=== PATIENT | female | born 1930 | race Caucasian/White ===

== ENCOUNTER → 2017-07-28 | Outpatient (CLI) | payer OTHER ==
[~2017-07-28] MED LIST: IOPAMIDOL (ISOVUE-300) 100 ML BTL ONE
== END ==
LOC: CIMAGING 13:05
PROVIDERS: ATTEND Registered Nurse General Practice
DX: R31.0 Gross hematuria (principal); K76.0 Fatty (change of) liver, not elsewhere classified; K57.30 Diverticulosis of large intestine without perforation or abscess without bleeding; Z87.891 Personal history of nicotine dependence
CPT/HCPCS: 74178; 76770; Q9967

== ENCOUNTER → 2018-07-01 | Outpatient (CLI) | payer OTHER | LOC: FIMAGING 14:02 | PROVIDERS: ATTEND Family Medicine | DX: M79.605 Pain in left leg (principal) ==

== ENCOUNTER → 2018-07-12 | Outpatient (CLI) | payer OTHER | LOC: BHFA 11:00 | PROVIDERS: ATTEND Internal Medicine | DX: Z01.810 Encounter for preprocedural cardiovascular examination (principal) ==

== ENCOUNTER → 2018-07-21 | Outpatient (CLI) | payer OTHER | LOC: BHFA 09:30 | PROVIDERS: ATTEND Internal Medicine Cardiovascular Disease | DX: Z01.810 Encounter for preprocedural cardiovascular examination (principal) | CPT/HCPCS: 78452; 93017; A9500; J2785 ==

== ENCOUNTER 2018-09-03 08:00 | Inpatient (IN) | payer OTHER ==
--- NOTE | 2018-09-03 17:59 | PDHOSCONS ---
History and Physical - Chief Complaint Elective spine surgery - History of Present Illness We are asked by Dr Guillen to evaluate and assist in the care of this patient with spinal and foramenal lumbar stenosis and L leg weakness admittedd for elective surgery. She does not have bowel or bladder incontinence, some pain but pain is not excessive. No recent trauma, no fever. No prior spine surgery. Has scoliosis but elected to do decompression and not a surgery for the scoliosis per se. Otherwise she feels healthy overall Notably did have robotic assisted nephrectomy for R renal mass that was malignant in July. Her recovery was uneventful overall but for one episode of high blood pressures that resolved quickly. She had no issues with anesthesia PREOPERATIVE RISK ASSESSMENT: -past surgeries include robotic nephrectomy July 2018, hip replacements, cataract surgery, all without anesthesia or bleeding issues or other complications -no symptoms or history of heart disease, unable to assess exertional capacity at this time due to weakness from her spine issues; had a Lexiscan stress with myocardial perfusion imaging July this year with no concerning abnormalities -no symptoms or history of lung disease -no medication allergies, has had side effects of morphine including symptoms somewhat jaymie to restless legs -no symptoms or history of cerebrovascular disease, renal disease, liver disease (creatinine slightly higher at 1.3 after her nephrectomy last month) ROS: A comprehensive 10 system review revealed no other significant findings PAST MEDICAL HISTORY: 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 I have reviewed the list and ordered appropriate medicines. PHYSICAL EXAMINATION: Vital Signs: All normal without fever Examination: General: alert, oriented, good mentation, relaxed Skin: warm, dry, good color, no rash HEENT: normal Neck: no mass or jvd Resps: relaxed Lungs: clear breath sounds Heart: regular, no murmur Abdomen: soft, nondistended, nontender, +BS, no mass Upper Extremities: normal Lower Extremities: no edema, warm No Bleeding or bruising IV site: looks normal LABORATORY DATA: CBC on August 10 with minimal normocytic anemia 12.8 hemoglobin Chemistry on August 10 with creatinine 1.4 compared to 1.0 before her nephrectomy Rest of metabolic panel looks good Iron saturation was diminished on August 10 RADIOLOGY STUDIES: I reviewed myocardial perfusion images from her stress test in July which show no evidence of ischemia and ejection fraction was good ASSESSMENT: * severe spinal canal and neuroforaminal stenosis with weakness in legs, difficulty walking and pain, admitted by Dr. Guillen for elective surgery which should occur tomorrow * status post recent nephrectomy for urothelial cell cancer, no complications after that surgery, recovered well, creatinine up slightly * iron deficiency based on blood test done August 10, uncertain etiology or duration. Notably she was minimally anemic at 12.8 hemoglobin normal hematocrit and normocytic. May have lost some blood with her nephrectomy but she should be assessed at some point in the not too distant future with GI workup. * anticipate postoperative risk of DVT PLANS: * Recommend proceeding with planned surgery, no further medical assessments or interventions required before anesthesia and surgery * Recommend starting DVT prophylaxis postop * Follow renal function closely for stability as she is now down to 1 kidney * Will check ferritin level to go along with the iron studies done August 10 * Will start iron replacement therapy * Stool for Hemoccult * Consider endoscopic GI evaluation as outpatient I have reviewed the patient's case in detail with Dr. Guillen I have reviewed the patient's past medical records as part of this assessment, including outpatient stress test results and images, outpatient laboratory studies, prior CT scans from outpatient setting History Information - Allergies/Home Medication List Allergies/Adverse Reactions: gluten Allergy (Verified 09/03/18 16:30) morphine Allergy (Verified 09/03/18 16:30) Home Medications: C/E/Zn/Cu/OM3/DHA/EPA/LUT/ZEAX [Preservision Areds 2 Softgel] 2 each PO DAILY [Last Taken 09/03/18] Gabapentin [Neurontin 300 MG (*)] 300 mg PO TID 09/03/18 [Last Taken 09/03/18] Herbals/Supplements -Info Only 1 ea PO DAILY 09/03/18 [Last Taken Unknown] Hydrocodone/Acetaminophen [Hydrocodon-Acetaminoph 7.5-325] 1 each PO HS [Last Taken 09/02/18] Lisinopril [Zestril 40 mg (*)] 40 mg PO DAILY 09/03/18 [Last Taken 09/03/18] Metoprolol Succinate Xr [Toprol Xl 50 mg (*)] 50 mg PO DAILY 09/03/18 [Last Taken 09/03/18] diphenhydrAMINE [Benadryl 25 MG (*)] 50 mg PO BID PRN 09/03/18 [Last Taken 09/03] I have personally reviewed and updated: family history, medical history, social history, surgical history - Social History Smoking Status: Never smoked Review of Systems Review of Systems: Physical Exam Physical Exam: Temp Pulse Resp BP Pulse Ox 36.4 C 72 17 107/52 L 97 09/03/18 15:31 09/03/18 15:31 09/03/18 15:31 09/03/18 15:31 09/03/18 15:31
[2018-09-03] MEDS ORDERED: ZOLPIDEM TARTRATE 5 MG TAB PO PRN (18:17)
[2018-09-03] MEDS ORDERED: ACETAMINOPHEN 325 MG TAB PO PRN (18:17)
[2018-09-03] MEDS ORDERED: ONDANSETRON 4 MG/2 ML VIAL IVP PRN (18:17)
[2018-09-03] MEDS ORDERED: BISACODYL 10 MG SUPP PR PRN (18:42)
[2018-09-03] MEDS ORDERED: MAGNESIUM HYDROXIDE 30 ML UDCUP PO PRN (18:42)
[2018-09-03] MEDS ORDERED: LACTULOSE 20 GM/30 ML UDCUP PO PRN (18:42)
--- NOTE | 2018-09-03 19:20 | GPROG ---
I saw and evaluated the patient at the bedside today. She is also being evaluated by her medical michael peñaian. My physical exam is unchanged from her office visit last week. Grossly, her right leg has 4 - out of 5 strength, and the left side is somewhere between 3 and 4- out of 5. She is quite weak. S he reports that she has actually gotten weaker since the last visit. She is weak circumferentially i n a stocking and glove-type distribution from the knees down. IMPRESSION/PLAN: At this point, we will move forward with an L3 to L5 decompression and an L3-4 micr odiscectomy is planned. The patient understands all risks and benefits. I also spoke with an anesth esiologist family friend regarding the progress. I also spoke with Dr. Canales, the hospitalist invol laura in her care. I believe they all have an excellent plan moving forward and will perform a decompr ession tomorrow morning at 8 a.m. /[id number]/MODL
[2018-09-03] MEDS: SENNOSIDES/DOCUSATE SODIUM TAB PO SCH (21:30)
[2018-09-03] MEDS: MELATONIN 3 MG TAB PO SCH (21:30)
[2018-09-03] MEDS ORDERED: diphenhydrAMINE 25 MG CAP PO PRN (22:47)
[2018-09-03] MEDS ORDERED: HYDROCODONE/APAP 5/325 TAB PO ONE (23:15)
[2018-09-04] MEDS ORDERED: BACITRACIN 50,000 UNITS/10 ML SYR IRR ONE (07:19)
[2018-09-04] MEDS ORDERED: BUPIVACAINE/EPI 0.5% 30 ML SDV ONE (07:19)
[2018-09-04] MEDS ORDERED: VANCOMYCIN 1 GM VIAL ONE (07:19)
[2018-09-04] MEDS ORDERED: SURGIFLO MATRIX KIT WITH THROMBIN 8 ML TP ONE (07:19)
[2018-09-04] MEDS ORDERED: CHLORHEXIDINE GLUC HIBICLENS 118 ML BTL TP ONE (07:20)
[2018-09-04] MEDS: METOPROLOL SUCCINATE XR 50 MG TAB PO SCH (07:21)
[2018-09-04] MEDS ORDERED: VANCOMYCIN 500 MG/10 ML VIAL IV ONE (07:22)
[2018-09-04] MEDS ORDERED: ceFAZolin 2 GM/DEXTROSE 100 ML IV ONE (07:35)
[2018-09-04] MEDS ORDERED: TRANEXAMIC ACID 1,000 MG in NS 100 ML IV ONE (07:35)
--- NOTE | 2018-09-04 07:37 | PDHPUP ---
History & Physical Update H&P update statement: This history and physical update is based on an assessment of the patient which was completed after admission or registration (within 24 hours), but prior to the surgery/procedure. H&P update: H&P reviewed & patient examined, no change in patient's condition since H&P completed
[2018-09-04] MEDS ORDERED: CEFAZOLIN 2 GM/DEXTROSE/100 ML BAG IV ONE (07:40)
[2018-09-04] MEDS ORDERED: THROMBIN (BOVINE) 5,000 UNIT VIAL TP ONE (07:52)
[2018-09-04 07:56] LABS: PLATELET COUNT 267 10^3/uL (150-400)
[2018-09-04] MEDS ORDERED: fentaNYL 100 MCG/2 ML INJ ONE ×2 (08:16→09:38)
[2018-09-04] MEDS ORDERED: PROPOFOL 200 MG/20 ML VIAL ONE (08:16)
[2018-09-04] MEDS ORDERED: ONDANSETRON 4 MG/2 ML VIAL ONE (08:17)
[2018-09-04] MEDS ORDERED: SUCCINYLCHOLINE CHLORIDE 200 MG/10 ML SYR IVP ONE (08:17)
[2018-09-04] MEDS ORDERED: DEXAMETHASONE 4 MG/ML VIAL ONE (08:17)
--- NOTE | 2018-09-04 08:32 | GPROG ---
I saw and evaluated this patient this morning. Overall, she is unchanged from last night's examinati on. She is ready for today's surgery, pending some lab values. We will move forward with the operat ion as planned. /[id number]/MODL
--- NOTE | 2018-09-04 08:42 | HOSPPROG ---
Hospitalist Progress Note Assessment/Plan: Jayde Tanner is an 89 y/o female who is admitted for weakness in her legs, difficulty w walking and having pain. First encounter, chart reviewed. * severe spinal canal and neuroforaminal stenosis -surgery today w Dr Guillen -evaluated after surgery and she is feelinf fine *renal insufficiency -avoid nephrotoxic drugs -hx of s/p nephrectomy -closely monitor renal function * status post recent nephrectomy for urothelial cell cancer *concern for UTI -patient and son are both concerned she has cloudy urine, will get a ua; she is not symptomatic but is very concerned w her hx of the nephrectomy and wants this further evaluation * iron deficiency anemia -check ferritin *Plan: repeat labs in a.m., initiate bowel protocol, PT and OT; she will need a SNF at [place] Subjective: Jayde is comfortable during my evaluation; has no specific complaints. Objective: Vital Signs Temp Pulse Resp BP Pulse Ox 36.6 C 66 16 119/60 94 09/04/18 07:39 09/04/18 07:39 09/04/18 07:39 09/04/18 07:39 09/04/18 07:39 Laboratory Results 09/04/18 07:45 09/04/18 07:45 09/03/18 09/04/18 09/05/18 05:59 05:59 05:59 Intake Total 900 Output Total 900 Balance 0 - Physical Exam Constitutional: appears nourished, not in pain Eyes: PERRL Ears, Nose, Mouth, Throat: hearing normal Cardiovascular: regular rate and rhythym Respiratory: no respiratory distress Skin: warm Neurologic: AAOx3 Psychiatric: interacting appropriately ICD10 Worksheet Patient Problems: Problems Problem Status Onset Sciatica Acute
--- NOTE | 2018-09-04 08:47 | PDANEPAE ---
ANE Past Medical History - Cardiovascular History Hx Hypertension: Yes Hx Coronary Artery / Peripheral Vascular Disease: No Hx CHF / Valvular Disease: No - Pulmonary History Hx COPD: No Hx Asthma/Reactive Airway Disease: No Hx Recent Upper Respiratory Infection: No Hx Sleep Apnea: No Sleep Apnea Screening Result - Last Documented: Negative - Endocrine History Hx Diabetes: No Obesity: no ANE Review of Systems Review of Systems: ANE Patient History - Allergies Allergies/Adverse Reactions: gluten Allergy (Verified 09/03/18 16:30) morphine Allergy (Verified 09/03/18 16:30) - Home Medications Home medications: home medication list seen and reviewed Home Medications: C/E/Zn/Cu/OM3/DHA/EPA/LUT/ZEAX [Preservision Areds 2 Softgel] 2 each PO DAILY [Last Taken 09/03/18] Gabapentin [Neurontin 300 MG (*)] 300 mg PO TID 09/03/18 [Last Taken 09/03/18] Herbals/Supplements -Info Only 1 ea PO DAILY 09/03/18 [Last Taken Unknown] Hydrocodone/Acetaminophen [Hydrocodon-Acetaminoph 7.5-325] 1 each PO HS [Last Taken 09/02/18] Lisinopril [Zestril 40 mg (*)] 40 mg PO DAILY 09/03/18 [Last Taken 09/03/18] Metoprolol Succinate Xr [Toprol Xl 50 mg (*)] 50 mg PO DAILY 09/03/18 [Last Taken 09/03/18] diphenhydrAMINE [Benadryl 25 MG (*)] 50 mg PO BID PRN 09/03/18 [Last Taken 09/03] - NPO status NPO Status: no food or drink >8 hours NPO Since - Liquids (Date): 09/04/18 NPO Since - Liquids (Time): 00:00 NPO Since - Solids (Date): 09/04/18 NPO Since - Solids (Time): 00:00 - Anes Hx Anes Hx: no prior problems (Note morphine causes pruritus.) - Smoking Hx Smoking Status: Never smoked ANE Labs/Vital Signs - Labs Result Diagrams: 09/04/18 07:45 09/04/18 07:45 - Vital Signs Blood Pressure: 119/60 Heart Rate: 66 Respiratory Rate: 16 O2 Sat (%): 94 Height: 162.56 cm Weight: 54.431 kg ANE Physical Exam - Airway Neck exam: decreased ROM Mallampati Score: Class 2 Mouth exam: dentures - Pulmonary Pulmonary: no respiratory distress, no rales or rhonchi, clear to auscultation - Cardiovascular Cardiovascular: regular rate and rhythym, no murmur, rub, or gallop - ASA Status ASA Status: III ANE Anesthesia Plan Anesthesia Plan: general endotracheal anesthesia
[2018-09-04] MEDS ORDERED: PHENYLEPHRINE HCL 100 MCG/ML SYR ONE (08:54)
[2018-09-04] MEDS ORDERED: ENOXAPARIN 40 MG/0.4 ML SYR SC SCH (09:00)
--- NOTE | 2018-09-04 09:25 | ASMTCMCOM ---
CM Note CM Note Notes: Chart reviewed for discharge planning purposes. Patient is 87 year female with history significant for renal cell cancer, s/p nephrectomy. She is here for elective lumbar spinal decompression. OR today. CM to follow for needs. Plan: TBD.. Date Signed: 09/04/2018 09:24 AM Electronically Signed By:Elva Hamlin RN
[2018-09-04] MEDS ORDERED: ONDANSETRON 4 MG/2 ML VIAL IVP PRN (09:29)
[2018-09-04] MEDS ORDERED: PROMETHAZINE HCL 25 MG/ML INJ IVP PRN (09:29)
[2018-09-04] MEDS ORDERED: oxyCODONE IR 5 MG TAB PO PRN (09:29)
[2018-09-04] MEDS ORDERED: HYDROCODONE/APAP 5/325 TAB PO PRN (09:29)
[2018-09-04] MEDS ORDERED: fentaNYL 100 MCG/2 ML INJ IVP PRN (09:29)
[2018-09-04] MEDS ORDERED: HYDROmorphONE/DILAUDID 2 MG/ML INJ IVP PRN (09:29)
[2018-09-04] MEDS ORDERED: DIAZEPAM 5 MG/ML 1 ML SYR IVP PRN (09:29)
[2018-09-04] MEDS ORDERED: NALOXONE HCL 0.4 MG/ML INJ IVP PRN (09:29)
[2018-09-04] MEDS ORDERED: LR 500 ML IV PRN (09:29)
[2018-09-04] MEDS ORDERED: LABETALOL HCL 20 MG/4 ML INJ IVP PRN (09:29)
[2018-09-04] MEDS ORDERED: ePHEDrine SULFATE 25 MG/5 ML SYR ONE (09:30)
--- NOTE | 2018-09-04 10:47 | POSTANESTH ---
Post Anesthetic Evaluation Cardiovascular Status: Normal, Stable, Similar to Pre-Op Cond Respiratory Status: Normal, Stable, Similar to Pre-op Cond. Level of Consciousness/Mental Status: Can Participate in Eval, Moderately Sleepy Pain Control: Adequate, Prn Tx Ordered Nausea/Vomiting Control: Adequate, Prn Tx Ordered Complications Possibly Related to Anesthesia: None Noted
--- NOTE | 2018-09-04 10:56 | SUROPNOTE ---
[facility] Operative Report - Surgery Date: 09/04/18 Pre-operative Diagnosis: Lumbar Spinal Stenosis, severe bilateral lower extremity wekaness Post-operative Diagnosis: Same Procedure: Open L3-5 Lumbar Laminectomy and Decompression Use of intra-operative fluoroscopy Use of a surgical microscope Surgeon: Gustavo Guillen MD Engraver Machine: Azeb Fierro Anesthesia: General endotracheal anesthesia Findings: As expected lumbar spinal stenosis Estimated Blood Loss: 100mL Drains: Hemovac sewn to skin Specimens: None Complications: None Condition: Transferred to PACU in stable condition. Implants: None Indications: This patient was seen and examined by me and diagnosed with lumbar spinal stenosis. She was admitted to [facility] on 09/03/18 for urgent medical workup and clearance. I have explained all options of treatment for the patient, and the patient has elected to proceed with operative management. I have explained all risks, benefits, and alternatives of the proposed procedure. The risks that we have discussed include , blindness, nerve damage, infection, dural tear, failure of surgery to alleviate pre-operative symptoms, and possible need for further operation. In addition to the aforementioned procedure, I discussed with the patient that other procedures may be indicated during the course of surgery that would be considered in the patients best interest. The patient expressed understanding of this. Pre-operative: The proposed incision site was marked in the pre-operative holding area by me. The patient was then taken to the operating room in stable condition. Following smooth induction of general anesthesia, the patient was positioned prone on a Juan A table in mild reverse Trendelenburg with all down surfaces well-padded. The patient was then prepped and draped in the usual sterile fashion. Pre- operative antibiotics were administered within one hour of the incision. A surgical timeout was performed, and all parties involved in the procedure were in agreement on the correct patient, location, and procedure to be performed. Approach: The proposed levels were identified using C-arm fluoroscopy and the skin was marked for the proposed incision. The skin was then incised sharply through the dermis. Electrocautery was used to dissect the subdermal fat layer down to fascia and to coagulate bleeding vessels. Secondary pause: Two Ace clamps were then placed on the spinous processes at both ends of the dissection. A lateral radiograph to identify the associated anatomy, and a small piece of bone from the associated spinous processes was removed for identification. A secondary spinal pause was then performed, and the level was confirmed with all parties participating in the operation. These clamps were noted to be at L3 and L5. Decompression: All paraspinal muscles were dissected sub-periostally from the spinous processes and laminae. The dissection was then carried out to include the extent of decompression that was determined before surgery, with care being taken to preserve all facet capsules. The lateral pars was identified for all levels to be included in the proposed decompression. Using a combination of rongeur, kailey, and Kerrison rongeurs, the spinous processes and laminae were removed at all levels to the subarticular lateral recess. Care was taken to leave a minimum of 8mm of bone from the lateral border of the pars at each decompressed level. The ligamentum flavum was resected at all levels. Additional care was taken to adequately decompress the lateral recess at all levels. At the cephalad and caudal vertebrae of the extent of the decompression , approximately 50% of the lamina was removed; at the remaining levels, a complete laminectomy was performed. At this time, a ball probe was used to probe all foraminae at the affected levels. Where necessary, a small Kerrison rongeur was used to decompress remaining bone and soft tissue so that all nerve roots would traverse freely through the foraminae. In total, the entire laminae of L4 and L5 were removed; the caudal 75% of L3 was removed. Closure: The surgical field was then copiously irrigated with sterile saline. Vancomycin powder was then applied to the surgical field. A small drain was placed deep to the fascia and brought out of the skin superior and laterally. The drain was then sewn to skin. #1 braided and absorbable interrupted sutures were used to repair the fascia. Then 2-0 monofilament interrupted sutures were used to repair the dermal layer, and a separate 3-0 monofilament suture was used to repair the subcutaneous layer in a running fashion. All sutures used were absorbable. Topical adhesive was then applied to the skin and allowed to dry. A sterile island dressing was applied over the surgical incision. A surgical count was performed before initiation of closure and following the procedure, and all were correct. I was present for all critical portions of the procedure. Neuromonitoring: SSEP, MEP and EMG were used throughout the case from incision until the beginning of closure. There were no significant changes throughout the case, and SSEP signals were at their pre-surgical baseline levels before surgical closure was initiated. Surgical microscope use: A surgical microscope was utilized throughout the decompressive portion of this case. This was deemed necessary for safe and accurate surgical decompression of affected nerve roots. animal assisted therapist: A surgical training specialist was used throughout the case, and deemed necessary for safe neural retraction, hemostasis, and suction. Recovery: The patient was extubated uneventfully in the operating room. The patient was taken to the recovery room in stable condition. Sequential compression devices for VTE prophylaxis were applied to the patients lower extremities, and were ordered to be used while the patient was non-ambulatory. Chemical VTE prophylaxis was considered to be contraindicated for this patient because of the risk of bleeding near the epidural space. Olu Guillen MD
[2018-09-04] MEDS: GABAPENTIN 300 MG CAP PO SCH ×3 (11:18→21:49)
[2018-09-04] MEDS: LISINOPRIL 40 MG TAB PO SCH (11:18)
[2018-09-04] MEDS: FERROUS SULFATE 325 MG TAB PO SCH (11:18)
[2018-09-04] MEDS: SENNOSIDES/DOCUSATE SODIUM TAB PO SCH ×2 (11:18→21:48)
[2018-09-04] MEDS ORDERED: NS 500 ML IV SCH (13:00)
[2018-09-04] MEDS: ceFAZolin 2 GM/DEXTROSE 100 ML IV SCH ×2 (14:16→21:48)
--- NOTE | 2018-09-04 16:36 | PDMN ---
Medical Necessity Medical necessity: Pt meets INPT criteria per and [facility] S-830 Lumbar Laminectomy (est. LOS >2 MN s/p open L3-5 lumbar laminectomy and decompression; hx recent nephrectomy for urothelial cell cancer).
[2018-09-04] MEDS: HYDROCODONE/APAP 5/325 TAB PO PRN ×2 (16:39→21:48)
[2018-09-04] MEDS ORDERED: [UNRECOGNIZED DRUG - OTHER] PO SCH (21:00)
[2018-09-04] MEDS ORDERED: ACETAMINOPHEN PO SCH (21:00)
[2018-09-04] MEDS ORDERED: HYDROCODONE PO SCH (21:00)
[2018-09-04] MEDS: MELATONIN 3 MG TAB PO SCH (21:44)
[2018-09-05] MEDS: HYDROCODONE/APAP 10/325 TAB PO PRN ×2 (02:02→22:03)
[2018-09-05 04:52] LABS: PLATELET COUNT 273 10^3/uL (150-400)
[2018-09-05] MEDS: SENNOSIDES/DOCUSATE SODIUM TAB PO SCH ×2 (09:52→22:01)
[2018-09-05] MEDS: GABAPENTIN 300 MG CAP PO SCH ×3 (09:52→22:01)
[2018-09-05] MEDS: FERROUS SULFATE 325 MG TAB PO SCH (09:52)
[2018-09-05] MEDS: METOPROLOL SUCCINATE XR 50 MG TAB PO SCH (09:52)
[2018-09-05] MEDS: ENOXAPARIN 30 MG/0.3 ML SYR SC SCH (09:54)
[2018-09-05] MEDS: LISINOPRIL 40 MG TAB PO SCH (09:54)
[2018-09-05] MEDS: HYDROCODONE/APAP 5/325 TAB PO PRN (11:09)
--- NOTE | 2018-09-05 13:53 | HOSPPROG ---
Hospitalist Progress Note Assessment/Plan: Jayde Tanner is an 89 y/o female who is admitted for weakness in her legs, difficulty w walking and having pain. First encounter, chart reviewed. * severe spinal canal and neuroforaminal stenosis -POD #1, Dr Guillen -she is feeling fine *renal insufficiency -avoid nephrotoxic drugs -hx of s/p nephrectomy -closely monitor renal function *Hyponatremia -mild, asymptomatic -recheck labs * status post recent nephrectomy for urothelial cell cancer *Pyuria -patient concerned she has cloudy urine -UA positive for infection -urine cx pending -she is not symptomatic but is very concerned w her hx of the nephrectomy and wants this further evaluation -await urine cx * iron deficiency anemia -ferritin stable -follow *Plan: repeat labs in a.m., initiate bowel protocol, PT and OT; she will need a SNF at [place] Subjective: Up in chair. Feeling fine. Doing therapy. Objective: Vital Signs Temp Pulse Resp BP Pulse Ox 36.6 C 72 17 109/47 L 100 09/05/18 11:40 09/05/18 11:40 09/05/18 11:40 09/05/18 11:40 09/05/18 11:40 Laboratory Results 09/05/18 04:17 09/05/18 04:17 09/04/18 09/05/18 09/06/18 05:59 05:59 05:59 Intake Total 900 2625 Output Total 900 930 Balance 0 1695 - Physical Exam Constitutional: appears nourished, not in pain, chronically ill appearing Eyes: PERRL, anicteric sclera, EOMI Ears, Nose, Mouth, Throat: moist mucous membranes, hearing normal, ears appear normal Cardiovascular: regular rate and rhythym, No JVD, No edema Respiratory: no respiratory distress, no rales or rhonchi, reduced air movement Gastrointestinal: normoactive bowel sounds, No tenderness, No ascites Skin: warm, normal color, No mottled Musculoskeletal: pain with ROM, muscular tenderness, abnormal gait, generalized weakness Neurologic: AAOx3 Psychiatric: interacting appropriately, not anxious, not encephalopathic, thought process linear ICD10 Worksheet Patient Problems: Problems Problem Status Onset Sciatica Acute
--- NOTE | 2018-09-05 14:09 | ASMTCMCOM ---
CM Note CM Note Notes: PT rec inpatient rehab, consult order is in and Chandni in admissions has been alerted. Pt also discussed SNF d/c, chooses [facility] and a referral was sent to in [employer]. D/c plan of care: [facility] SNF or [facility] inpatient rehab Date Signed: 09/05/2018 02:09 PM Electronically Signed By:KATIE Williamson
[2018-09-05] MEDS: MELATONIN 3 MG TAB PO SCH (22:02)
--- NOTE | 2018-09-06 01:48 | GPROG ---
I saw and evaluated the patient this morning at the bedside. Overall, she reports improvement in rea n in the leg. She really has not gotten up. However, she has urinated since the operation. EXAM: She is probably about a 4- out of 5 in the left quadriceps. Iliopsoas has 4+ out of 5 strengt h. The right lower extremity is clearly stronger as well with a 4+ out of 5 throughout all modalitie s. Drain is in place and left in place. Dressing is clean, dry, intact, and left that way. ASSESSMENT AND PLAN: We will get the patient up with physical therapy today. We will try to move jamison horner with her progress. We will also arrange for physical therapy evaluation and disposition. /[id number]/MODL
[2018-09-06] MEDS: METHOCARBAMOL 750 MG TAB PO PRN ×2 (01:51→08:40)
[2018-09-06] MEDS: POLYETHYLENE GLYCOL 3350 17 GM PKT PO PRN (08:36)
[2018-09-06] MEDS: ENOXAPARIN 30 MG/0.3 ML SYR SC SCH (08:39)
[2018-09-06] MEDS: METOPROLOL SUCCINATE XR 50 MG TAB PO SCH (08:40)
[2018-09-06] MEDS: LISINOPRIL 40 MG TAB PO SCH (08:40)
[2018-09-06] MEDS: SENNOSIDES/DOCUSATE SODIUM TAB PO SCH ×2 (08:40→21:52)
[2018-09-06] MEDS: FERROUS SULFATE 325 MG TAB PO SCH (08:41)
[2018-09-06] MEDS: GABAPENTIN 300 MG CAP PO SCH ×3 (08:41→21:52)
[2018-09-06] MEDS: HYDROCODONE/APAP 5/325 TAB PO PRN ×2 (08:46→21:53)
--- NOTE | 2018-09-06 13:16 | ASMTCMCOM ---
CM Note CM Note Notes: Azul at [facility] Inpatient Re[facility] still evaluating patient for possible admission. If [facility] unable to accept, patient will d/c to [facility]. Await c/b from [facility]. CM will follow. Plan: [facility] vs [facility] Date Signed: 09/06/2018 01:16 PM Electronically Signed By:Alfreda Stanton RN
--- NOTE | 2018-09-06 13:18 | HOSPPROG ---
Hospitalist Progress Note Assessment/Plan: Jayde Tanner is an 89 y/o female who is admitted for weakness in her legs, difficulty w walking and having pain. * severe spinal canal and neuroforaminal stenosis -POD #2, Dr Guillen -she is feeling fine *renal insufficiency -avoid nephrotoxic drugs -hx of s/p nephrectomy -closely monitor renal function -stable *Hyponatremia -mild, asymptomatic -better -stable * status post recent nephrectomy for urothelial cell cancer *Pyuria -urine cx negative -UA positive for infection -she is not symptomatic -will not treat * iron deficiency anemia -ferritin stable -follow *Plan: SNF DC when ok with ortho feels stable Subjective: Feeling well. No specific issues. Objective: Vital Signs Temp Pulse Resp BP Pulse Ox 36.6 C 70 13 94/46 L 95 09/06/18 12:00 09/06/18 12:00 09/06/18 12:00 09/06/18 12:00 09/06/18 12:00 Laboratory Results 09/06/18 04:47 09/06/18 04:47 09/05/18 09/06/18 09/07/18 05:59 05:59 05:59 Intake Total 2625 500 Output Total 930 1120 500 Balance 1695 -620 -500 - Physical Exam Constitutional: appears nourished, not in pain Eyes: PERRL, anicteric sclera Ears, Nose, Mouth, Throat: moist mucous membranes, hearing normal Cardiovascular: No JVD, No edema Respiratory: no respiratory distress, no rales or rhonchi Gastrointestinal: No tenderness, No ascites Skin: warm, normal color Musculoskeletal: pain with ROM, muscular tenderness, generalized weakness Neurologic: AAOx3 Psychiatric: interacting appropriately, not anxious, not encephalopathic ICD10 Worksheet Patient Problems: Problems Problem Status Onset Sciatica Acute
--- NOTE | 2018-09-06 14:26 | ASMTCMCOM ---
CM Note CM Note Notes: Met with patient re: SNF of choice. Patient is now interested in [facility] and is requesting a referral be sent to them. Referral sent via [employer]. Still awaiting final determination from [facility] as well. CM will follow. Plan: [facility] vs [facility] vs [facility] Date Signed: 09/06/2018 02:25 PM Electronically Signed By:Alfreda Stanton RN
--- NOTE | 2018-09-06 17:28 | ASMTCMCOM ---
CM Note CM Note Notes: Patient and son wanted to meet with CM. They wanted to know the difference between In-pt Rehab and SNF Rehab. Referrals had been sent to [facility] and [facility] who both had accepted patient. PT and OT had recommended In-pt Rehab and there was a In-pt Rehab order. Contact made to In-pt Rehab and they are strongly considering admitting but won't know until tomorrow morning. Son Emmett would like to transport patient and is coming from [facility]. This CM gave In-pt admisions his phone #'s [phone] and [phone] Admissions will contact Emmett to let him know what time they would like patient transferred. Patient is 87yo lives alone in [place] and has been living independently. She has a retired RN friend who checks in with her. Date Signed: 09/06/2018 05:27 PM Electronically Signed By:Tamara Frazier LCSW
--- NOTE | 2018-09-06 19:01 | GPROG ---
The patient is doing well today. She reports marked improvement of her strength in her legs when she walks. She also notices quite a bit of improvement with regard to sensation bilaterally. Drain has a normal amount of output. ASSESSMENT AND PLAN: We will progress with the patient today. She will likely be going to a rehab f acility tomorrow. We will discontinue the drain in the morning. All questions have been answered fo r the patient. /[id number]/MODL
[2018-09-06] MEDS: MELATONIN 3 MG TAB PO SCH (21:53)
[2018-09-07] MEDS: METHOCARBAMOL 750 MG TAB PO PRN ×2 (00:41→13:19)
[2018-09-07] MEDS: HYDROCODONE/APAP 10/325 TAB PO PRN (03:15)
[2018-09-07 08:18] VITALS: BP 117/55
[2018-09-07] MEDS: METOPROLOL SUCCINATE XR 50 MG TAB PO SCH (08:18)
[2018-09-07] MEDS: ENOXAPARIN 30 MG/0.3 ML SYR SC SCH (08:18)
[2018-09-07] MEDS: SENNOSIDES/DOCUSATE SODIUM TAB PO SCH (08:18)
[2018-09-07] MEDS: LISINOPRIL 40 MG TAB PO SCH (08:19)
[2018-09-07] MEDS: GABAPENTIN 300 MG CAP PO SCH (08:19)
[2018-09-07] MEDS: FERROUS SULFATE 325 MG TAB PO SCH (08:19)
[2018-09-07] MEDS: POLYETHYLENE GLYCOL 3350 17 GM PKT PO PRN (08:19)
[2018-09-07] MEDS ORDERED: PRESERVISION AREDS2 FORMULA EYE VIT 1 EACH PO SCH (09:00)
--- NOTE | 2018-09-07 09:04 | PDIAF ---
- Diagnosis Diagnosis: s/p lumbar decompression Code Status: Full Code - Medication Management Discharge Medications: electronically signed and located in the Home Medication List. - Orders Diet Recommendation: no restrictions on diet Diet Texture: Regular Texture Diet Additional Instructions: d/c to halfway facility. Required for patient recovery. Thank you. - Follow Up Care Current Providers and Referrals: Raya Chacko MD [Primary Care Provider] - Gustavo Guillen MD [Medical Doctor] -
--- NOTE | 2018-09-07 11:00 | ASMTCMCOM ---
CM Note CM Note Notes: Pt medically stable for d/c to [facility] inpatient rehab. Pt joel Emmett to transport approx 14:30. RN Akilah to call report. Orders to be obtained via [employer]. Date Signed: 09/07/2018 10:59 AM Electronically Signed By:KATIE Williamson
--- NOTE | 2018-09-07 11:01 | ASMTLACE ---
LACE Length of stay for Answers: 4-6 days current admission Acuity / Level of Answers: Yes Care: Did the patient have an inpatient admission? Comorbidities - select Answers: Any tumor (including all that apply lymphoma or leukemia) Score: 9 Date Signed: 09/07/2018 11:00 AM Electronically Signed By:KATIE Williamson
[2018-09-07] MEDS: HYDROCODONE/APAP 5/325 TAB PO PRN (13:19)
--- NOTE | 2018-09-07 14:34 | GPROG ---
I saw and evaluated the patient today during my rounds. Her incision is clean, dry, and intact. The dressing was left in place. She has no unusual complaints. Her pain is well controlled on oral reg imen. Strength is grossly the same as it was before. She is about 4- on the left leg and 4+ or 5 on the right. The affected groups are the quadriceps, tibialis anterior, and gastrocsoleus. ASSESSMENT AND PLAN: Will let the patient go home today. I will see her in 2 weeks' time. /[id number]/MODL
--- NOTE | 2018-09-07 15:08 | ASDISCHSUM ---
Discharge Information Plan Status:Inpatient Rehab Medically Cleared to Leave: Discharge Date:09/07/2018 02:28 PM D/C Disposition: ADT D/C Disposition:[facility] Facility Projected Discharge Date:09/06/2018 11:00 AM Transportation at D/C:Family Discharge Delay Reason: Follow-Up Date:09/06/2018 11:00 AM Discharge Slot: Final Diagnosis: Placement Information Referral Type:*Long-Term/SNF Referral ID:[id number] Provider Name: Address 1: Phone Number: Address 2: Fax Number: City: Selection Factors: State: Referral Type:[facility] Referral ID:[id number] Provider Name:[facility] Address 1:[address] [place] [address] Phone Number: Address 2: Fax Number: [facility] Selection Factors: State:[place] Patient Contact Information Contact Name:REINA Relationship:Son Address:[address] City:[place] Alternate Phone: State/Zip Code:[place] [address] Email: Financial Information Financial Class:Medicare Primary Plan Desc:MEDICARE INPATIENT Primary Plan Number:[id number] Secondary Plan Desc:[place] Secondary Plan Number:[id number] Assessment Information LACE LACE Length of stay for Answers: 4-6 days current admission Acuity / Level of Answers: Yes Care: Did the patient have an inpatient admission? Comorbidities - select Answers: Any tumor (including all that apply lymphoma or leukemia) Score: 9 Date Signed: 09/07/2018 11:00 AM Electronically Signed By:KATIE Williamson [facility] CM Progress Note CM Note CM Note Notes: Chart reviewed for discharge planning purposes. Patient is 87 year female with history significant for renal cell cancer, s/p nephrectomy. She is here for elective lumbar spinal decompression. OR today. CM to follow for needs. Plan: TBD.. Date Signed: 09/04/2018 09:24 AM Electronically Signed By:Elva Hamlin RN [facility] CM Progress Note CM Note CM Note Notes: PT rec inpatient rehab, consult order is in and Chandni in admissions has been alerted. Pt also discussed SNF d/c, chooses [facility] and a referral was sent to in [employer]. D/c plan of care: [facility] SNF or [facility] inpatient rehab Date Signed: 09/05/2018 02:09 PM Electronically Signed By:KATIE Williamson [facility] CM Progress Note CM Note CM Note Notes: [facility] at [facility] Inpatient Rehab still evaluating patient for possible admission. If IPR unable to accept, patient will d/c to [facility]. Await c/b from [facility]. CM will follow. Plan: [facility] IPR vs [facility] Date Signed: 09/06/2018 01:16 PM Electronically Signed By:Alfreda Stanton RN [facility] CM Progress Note CM Note CM Note Notes: Met with patient re: SNF of choice. Patient is now interested in [facility] and is requesting a referral be sent to them. Referral sent via [employer]. Still awaiting final determination from IPR as well. CM will follow. Plan: [facility] IPR vs [facility] vs [facility] Date Signed: 09/06/2018 02:25 PM Electronically Signed By:Alfreda Stanton RN [facility] CM Progress Note CM Note CM Note Notes: Patient and son wanted to meet with CM. They wanted to know the difference between In-pt Rehab and SNF Rehab. Referrals had been sent to [facility] and [facility] who both had accepted patient. PT and OT had recommended In-pt Rehab and there was a In-pt Rehab order. Contact made to In-pt Rehab and they are strongly considering admitting but won't know until tomorrow morning. Son Emmett would like to transport patient and is coming from [facility]. This CM gave In-pt admisions his phone #'s [phone] and [phone] Admissions will contact Emmett to let him know what time they would like patient transferred. Patient is 87yo lives alone in [place] and has been living independently. She has a retired RN friend who checks in with her. Date Signed: 09/06/2018 05:27 PM Electronically Signed By:Tamara Frazier LCSW [facility] CM Progress Note CM Note CM Note Notes: Pt medically stable for d/c to [facility] inpatient rehab. Pt joel Christine to transport approx 14:30. SELAM Isbell to call report. Orders to be obtained via [employer]. Date Signed: 09/07/2018 10:59 AM Electronically Signed By:KATIE Williamson Intervention Information Intervention Type:No Admission Order Date of Service:09/05/2018 09:48 AM Patient Type:Inpatient Staff Member:Shona Burnett Hours: Discipline: Severity: Comment: Intervention Type:*IM-Signed Date of Service:09/07/2018 12:10 PM Patient Type:Inpatient Staff Member:Jossie Montenegro Hours: Discipline: Severity: Comment:
--- NOTE | 2018-09-07 17:23 | HOSPPROG ---
Hospitalist Progress Note Assessment/Plan: Jayde Tanner is an 89 y/o female who is admitted for weakness in her legs, difficulty w walking and having pain. * severe spinal canal and neuroforaminal stenosis -POD #3, Dr Guillen -she is feeling fine *renal insufficiency -avoid nephrotoxic drugs -hx of s/p nephrectomy -closely monitor renal function -stable *Hyponatremia -mild, asymptomatic -better -stable * status post recent nephrectomy for urothelial cell cancer *Pyuria -urine cx negative -UA positive for infection -she is not symptomatic -will not treat * iron deficiency anemia -ferritin stable -follow *Plan: SNF DC vs inpt rehab feels stable Subjective: Feeling well today. Eager about DC. Objective: Vital Signs Temp Pulse Resp BP Pulse Ox 36.7 C 71 16 117/55 L 93 09/07/18 08:12 09/07/18 08:12 09/07/18 08:12 09/07/18 08:12 09/07/18 08:12 Microbiology 09/04/18 16:40 Urine Culture - Final Urine,Clean Catch Escherichia Coli Laboratory Results 09/06/18 04:47 09/06/18 04:47 09/06/18 09/07/18 09/08/18 05:59 05:59 05:59 Intake Total 500 800 Output Total 1120 1550 Balance -620 -750 - Physical Exam Constitutional: appears nourished, not in pain Eyes: PERRL, anicteric sclera Ears, Nose, Mouth, Throat: moist mucous membranes, hearing normal Cardiovascular: regular rate and rhythym, No JVD Respiratory: no respiratory distress, no rales or rhonchi Gastrointestinal: No tenderness, No ascites Skin: warm, normal color Musculoskeletal: pain with ROM, abnormal gait, generalized weakness Neurologic: AAOx3 Psychiatric: not anxious, not encephalopathic, thought process linear ICD10 Worksheet Patient Problems: Problems Problem Status Onset Sciatica Acute
--- NOTE | 2018-09-07 18:41 | GDS ---
The patient underwent an uneventful L3-L5 lumbar decompression on 09/04. She did well following this . Her pain was well controlled on oral regimen. There were no complications postsurgically. Her dr echevarria was removed. She progressed well with physical therapy. Moving forward, she is not to bend, lift, or twist for the next 6 weeks and is to use a back brace du ring that time. She has my cell phone as a pre-surgical packet and if she has any further questions or concerns. She will see me in 2 weeks time and is to avoid any sort of blood thinners or Lovenox o r aspirin. /[id number]/MODL
== END 2018-09-07 14:28 | DRG 519 ==
LOC: UNDOADMIN 15:04 → F3N 15:04 → UNDODISIN 09-07 14:28
PROVIDERS: ADMIT Orthopaedic Surgery Orthopaedic Surgery of the Spine; ATTEND Orthopaedic Surgery Orthopaedic Surgery of the Spine
DX: M48.061 Spinal stenosis, lumbar region without neurogenic claudication (principal); E87.1 Hypo-osmolality and hyponatremia; N28.9 Disorder of kidney and ureter, unspecified; Z90.5 Acquired absence of kidney; D50.9 Iron deficiency anemia, unspecified; R82.71 Bacteriuria
CPT/HCPCS: 97116-GP; 97161-GP; 97166-GO; 97530-GO; 97530-GP; 97535-GO; G8978-GP-CJ; G8979-GP-CI; G8987-GO-CK; G8988-GO-CI; J0330; J0690; J1100; J1650; J2370; J2405; J2704; J3010; J3370

== ENCOUNTER 2018-09-07 08:13 | Inpatient (IN) | payer OTHER ==
[2018-09-07] MEDS ORDERED: POLYETHYLENE GLYCOL 3350 17 GM PKT PO PRN (16:06)
[2018-09-07] MEDS ORDERED: ZOLPIDEM TARTRATE 5 MG TAB PO PRN (16:06)
[2018-09-07] MEDS ORDERED: ACETAMINOPHEN 325 MG TAB PO PRN (16:06)
[2018-09-07] MEDS ORDERED: METHOCARBAMOL 750 MG TAB PO PRN (16:06)
--- NOTE | 2018-09-07 16:54 | GHP ---
POST ADMISSION PHYSICIAN EVALUATION AND REHABILITATION TREATMENT PLAN DATE OF ADMISSION: 09/07/2018 DATE OF EVALUATION: 09/07/2018. TIME OF EVALUATION: 1530. REFERRING FACILITY: [facility] REFERRING PHYSICIAN: Dr. Guillen CONSULTING PHYSICIAN: She was seen by the hospital medicine service, Dr. Canales. REHABILITATION DIAGNOSIS: Debility with left leg weakness following L3-L5 decompression and laminectomy. IMPAIRMENT GROUP is 4.130. 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 DATE OF ONSET: 09/03/2018. DATE OF SURGERY: 09/04/2018. HISTORY OF PRESENT ILLNESS: This patient had history of left leg weakness and falls. She was found to have spinal and foraminal lumbar stenosis, and she came to the hospital for elective surgery to treat it. She also has scoliosis, but elected to do the decompression laminectomy and not surgery for the scoliosis. Hospital course was relatively uncomplicated. She was monitored for renal insufficiency as she had a recent nephrectomy in July of this year for urothelial carcinoma. She and her son report that the surgeon felt that there was no residual tumor. However, she is to have an oncology referral sometime in the near future. She had been diagnosed with iron deficiency anemia in the end of July presumably following her nephrectomy, and she was continued on iron replacement. She had a normal ferritin during her hospital stay. She was noted to have cloudy urine. A urinalysis appeared positive for UTI and urine culture grew [id number] colony-forming units of Escherichia coli which was pansensitive. However, she did not have symptoms consistent with urinary tract infection, so she was not treated. She was participating in physical and occupational therapies and ready for inpatient rehabilitation. OTHER LAB AND STUDIES DURING HER STAY: Hemoglobin on 09/06/2018, was 9.3 and hematocrit was 29, hemoglobin was 10.7 and hematocrit 32.7 on 09/04/2018. This was probably pre-surgical and on 08/10/2018, hemoglobin was 12.2 and hematocrit was normal at 39. CBC was otherwise normal. Serum chemistry revealed hyponatremia with a sodium of 132. She had renal insufficiency with a creatinine of 1.4 on 09/04/2018, and an estimated GFR of 36. These improved to 1.1 and 47 on 09/06/2018. She had a slightly low albumin at 2.9 on 09/04/2018. Hemoccult was negative X 1. PRECAUTIONS: She is a fall risk. She has orthopedic spinal precautions. ACTIVE COMORBIDITIES: She has no active tier 1, tier 2 or tier 3 comorbidities. PAST MEDICAL HISTORY: 1. Urothelial carcinoma. 2. Osteoarthritis. 3. Cataracts. 4. Hypertension. PAST SURGICAL HISTORY: 1. She had a nephrectomy for a right renal mass in July. 2. Bilateral hip replacements. 3. Cataract replacement. PRE-HOSPITAL MEDICATIONS: I do not have a list. ADMISSION MEDICATIONS: 1. Metoprolol succinate XR 50 mg p.o. daily. 2. Lisinopril 40 mg p.o. daily. 3. Gabapentin 300 mg p.o. t.i.d. 4. Zolpidem 5 mg p.o. at bedtime p.r.n. 5. Senna/docusate 1-2 tabs p.o. b.i.d. 6. Polyethylene glycol 17 g p.o. daily p.r.n. 7. Methocarbamol 750 mg p.o. q.i.d. p.r.n. 8. Melatonin 3 mg p.o. at bedtime. 9. Ferrous sulfate 325 mg p.o. daily. 10. Acetaminophen 650 mg p.o. q.6 hours p.r.n. ALLERGIES: There are allergies listed to gluten and to morphine. SOCIAL HISTORY: She is a nonsmoker. She lives half time in the [facility] and half time in [place], [place]. Prior to the onset of her leg weakness, she was fully independent. FAMILY HISTORY: Noncontributory. REVIEW OF SYSTEMS: She currently reports pain in the her lateral left knee. She reports that she had knee buckling happening frequently prior to her surgery ; it is now happening only rarely but she knows that the left leg is weak. Pain has not been interfering with sleep, though she has found the bed at the hospital to be uncomfortable. She denies fever or chills, cough or dyspnea, nausea, vomiting, constipation, or diarrhea, urinary frequency or dysuria, though she does report that at times she has difficulty fully emptying her bladder and has to sit on the toilet after urination stops in order to urinate more and feel like she has voided thoroughly. She denies skin rash or skin breakdown. She denies joint pain or joint swelling other than the pain in her lateral left knee. Otherwise, a 10-point review of systems is negative. PHYSICAL EXAMINATION: VITAL SIGNS: Blood pressure is 122/84, heart rate is 65 , respiratory rate is 14, oxygen saturation is 95% on room air. Temperature is 36.4 degrees centigrade. Her weight in the hospital was 54.4 kg for a body mass index of 20.6. GENERAL: This is a well-nourished, well-developed, petite woman. Appears her chronologic age. Cooperative and in no acute distress. HEENT: Extraocular movements are intact. Pupils are equal, round, reactive to light. Mucous membranes are moist. Dentition is in good condition. She has an uncrowded airway, Mallampati class 1. NECK: Supple. HEART: Regular rate and rhythm with no murmurs, rubs, or gallops. CHEST: Lungs are clear to auscultation bilaterally. ABDOMEN: Soft, nontender, nondistended with normoactive bowel sounds and no hepatosplenomegaly. EXTREMITIES: There is no cyanosis, clubbing, or edema. Radial and dorsalis pedis pulses are 2+ bilaterally. NEUROLOGIC: She is alert and oriented x3. She is somewhat hard of hearing. Cranial nerves 2-12 are grossly intact. Upper extremities and right lower extremity have normal strength. Left lower extremity has 3/5 strength at the hip flexor and quadriceps and normal strength at the hamstring, foot plantar flexion, and foot dorsiflexion. Sensation is intact to light touch. Deep tendon reflexes are 2+ bilaterally at the biceps and the right Achilles and patellar tendons, but are absent at the left Achilles and patellar tendons. SKIN: She has a well-approximated incision over her spine. It is glued. There is no drainage and no erythema. CURRENT LEVEL OF FUNCTION: Per the pre-admission screen. Regarding diet, feeding, and swallowing, she was on a regular diet. For grooming, she needed assistance. For bathing, she needed assistance. For dressing, she needed assistance. Toileting was accomplished with standby assist. Bed mobility required minimal assist. Transfers required minimal assist. She used a 4- wheeled walker. She was able to ambulate 200 feet with minimal assist to contact guard assist. Communication and cognition were considered to be normal. She needed assistance to don and doff her lumbar corset. IMPRESSION: This is an 87-year-old woman who had lumbar spinal and foraminal stenosis with leg weakness and falls. She underwent an L3-L5 decompression and laminectomy. She has come through surgery well with no hospital complications. She had anemia prior to her surgery, which may be related to her recent nephrectomy for urothelial carcinoma ,and had iron deficiency. She has renal insufficiency with a reduced GFR. She has improved strength in her left lower extremity and improved gait. She is appropriate for inpatient rehabilitation. Her goal is to complete a repeat rehabilitation stay and then go home with assist as needed. For a safe discharge, she will need to achieve modified independence with ambulating, ADLs , and to don and doff her lumbar corset. She will need to have DME and home health care services ordered as needed. There will need to be education on precautions and wearing of the lumbar orthosis. She will have therapy with Physical Therapy and Occupational Therapy for 90 minutes per day for each discipline on 5-7 days of the week. Her expected duration of stay is 12-17 days. PLAN: 1. Debility with left leg weakness status post L3-L5 decompression and laminectomy. PT and OT to optimize mobility and activities of daily living. 2. Hypertension appears to be adequately controlled with her current medications, which will be continued. 3. Iron deficiency anemia. Continue iron sulfate. Unclear if she was taking it prior to her admission. 4. Chronic renal insufficiency. Continue blood pressure control. Avoid nephrotoxins. 5. Pain management. In the hospital, she was being treated with hydrocodone/ acetaminophen combination and on discharge she is only receiving acetaminophen. I will add hydrocodone/acetaminophen combination. Her most recent use was 5/ 325 mg 1 tablet in early afternoon today. She also was prescribed gabapentin, which has been continued. She will be assessed as to whether or not there is any neuropathic pain and consider discontinuing the gabapentin. 6. Insomnia in the hospital. Zolpidem was prescribed but not used. It is currently prescribed on as-needed basis. She will be observed for her quality of her sleep. Melatonin is also prescribed scheduled at bedtime. Consider discontinuing melatonin if she sleeps well for several nights. 7. Prophylaxis. She has ambulated 200 feet. She does not have hemiplegia, though she has weakness of the left leg. She will be observed regarding mobility. She will not have pharmacologic prophylaxis at present but she will have sequential compression devices at night. FOLLOW-UP. She will see Dr. Guillen, orthopedic spine surgeon after her discharge from inpatient rehabilitation. Her primary care provider is Dr. Raya Chacko. She also needs to have a referral to Oncology regarding her history of urothelial carcinoma. /[id number]/MODL MTDD
[2018-09-07] MEDS: SENNOSIDES/DOCUSATE SODIUM TAB PO SCH (21:57)
[2018-09-07] MEDS: GABAPENTIN 300 MG CAP PO SCH (21:57)
[2018-09-07] MEDS: MELATONIN 3 MG TAB PO SCH (21:58)
[2018-09-07] MEDS: HYDROCODONE/APAP 5/325 TAB PO PRN (22:16)
[2018-09-08] MEDS ORDERED: HYDROCORTISONE 2.5% 30 GM CRTUBE TP PRN (07:00)
[2018-09-08] MEDS: GABAPENTIN 300 MG CAP PO SCH ×3 (08:37→19:39)
[2018-09-08] MEDS: FERROUS SULFATE 325 MG TAB PO SCH (08:37)
[2018-09-08] MEDS: LISINOPRIL 40 MG TAB PO SCH (08:37)
[2018-09-08] MEDS: SENNOSIDES/DOCUSATE SODIUM TAB PO SCH ×2 (08:38→22:11)
[2018-09-08] MEDS: METOPROLOL SUCCINATE XR 50 MG TAB PO SCH (08:38)
[2018-09-08] MEDS ORDERED: Herbals/Supplements -Info Only PO SCH (09:00)
[2018-09-08] MEDS: HYDROCODONE/APAP 5/325 TAB PO PRN ×2 (10:13→22:11)
--- NOTE | 2018-09-08 12:55 | PDOREHIP ---
Admission [facility] - Admission - 3 Day Assessment Period Admission Date/Day 1: 09/07/18 Day 2: 09/08/18 Day 3: 09/09/18 - Active Diagnoses Comorbidities and Co-existing Conditions at Admission: 89368. None of the Above - Skin Conditions Unhealed Pressure Ulcer (1 or more/Stage 1 or >)-Admission: 0. No # Stage 1 Pressure Ulcers-Admission: 0 # Stage 2 Pressure Ulcers-Admission: 0 # Stage 3 Pressure Ulcers-Admission: 0 # Stage 4 Pressure Ulcers-Admission: 0 # Unstageable Pressure Ulcers (Non-remove Dress)-Admission: 0 # Unstageable Pressure Ulcers (Slough/Eschar)-Admission: 0 # Unstageable Pressure Ulcers (Deep Tissue Injury)-Admission: 0
--- NOTE | 2018-09-08 12:55 | SOAPPROG ---
SOAP Progress Note Assessment/Plan: Assessment: Debility with left leg weakness status post L3-L5 decompression and laminectomy. PT and OT to optimize mobility and activities of daily living. * Has ambulated 150 ft with 4 wheeled walker with supervision, and 20 ft with no assistive device and minimal assistance. Hypertension appears to be adequately controlled with her current medications, which will be continued. Iron deficiency anemia. Continue iron sulfate. Unclear if she was taking it prior to her admission. Postsurgical care. Continue spinal precautions. Left message with Dr. Guillen' s office 09/08/2018 inquiring as to whether she can remove lumbar corset to shower. Chronic renal insufficiency. Continue blood pressure control. Avoid nephrotoxins. * Stable on BMP 09/08/2018. Pain management. Adequate control with acetaminophen, gabapentin and occasional [place]. Insomnia in the hospital. Pruritus due to tape on bandage over incision interfered with sleep last night. She did not use zolpidem. * Type of tape has been changed and she reports resolution of pruritus. Observe for improved sleep tonight, 09/08/2018. Prophylaxis. She has ambulated 200 feet. She does not have hemiplegia, though she has weakness of the left leg. She will be observed regarding mobility. She will not have pharmacologic prophylaxis at present but she will have sequential compression devices at night. FOLLOW-UP. She will see Dr. Guillen, orthopedic spine surgeon after her discharge from inpatient rehabilitation. Her primary care provider is Dr. Raya Chacko. She also needs to have a referral to Oncology regarding her history of urothelial carcinoma. 09/08/18 14:56 Subjective: Had itching under tape on bandage over her incision which kept her up last night. Left leg pain is improved. No fevers or chills, no cough or dyspnea. Objective: Vital Signs Temp Pulse Resp BP Pulse Ox 36.8 C 65 16 127/66 H 93 09/08/18 05:54 09/08/18 08:38 09/08/18 05:54 09/08/18 08:38 09/08/18 05:54 Laboratory Results 09/08/18 06:00 09/07/18 09/08/18 09/09/18 05:59 05:59 05:59 Intake Total 418 Output Total 1450 Balance -1032 Physical Exam - Physical Exam General Appearance: WD/WN, alert, no apparent distress Respiratory: normal breath sounds, No crackles, No rhonchi, No wheezing Cardiac/Chest: regular rate, rhythm, No edema, No diastolic murmur, No systolic murmur Skin: normal color, warm/dry Neuro/Psych: alert, normal mood/affect, oriented x 3 ICD10 Worksheet Patient Problems: Problems Problem Status Onset Sciatica Acute
[2018-09-08] MEDS: MELATONIN 3 MG TAB PO SCH (22:11)
[2018-09-09] MEDS: HYDROCODONE/APAP 5/325 TAB PO PRN ×2 (06:57→22:10)
[2018-09-09] MEDS: SENNOSIDES/DOCUSATE SODIUM TAB PO SCH ×2 (08:34→22:09)
[2018-09-09] MEDS: GABAPENTIN 300 MG CAP PO SCH ×3 (08:34→22:09)
[2018-09-09] MEDS: LISINOPRIL 40 MG TAB PO SCH (08:34)
[2018-09-09] MEDS: FERROUS SULFATE 325 MG TAB PO SCH (08:34)
[2018-09-09] MEDS: METOPROLOL SUCCINATE XR 50 MG TAB PO SCH (08:35)
--- NOTE | 2018-09-09 11:55 | SOAPPROG ---
SOAP Progress Note Assessment/Plan: Assessment: Debility with left leg weakness status post L3-L5 decompression and laminectomy. * Initial functional independence measure is 82 on 09/09/2018. Contact guard assist for mobility and for climbing and descending 3 stairs. Scored 30/56 on the Nolan balance inventory. Has weakness on the right foot dorsiflexion and left hip flexion. Often forgets to use breaks with her 4 wheeled walker. Upper body dressing requires cues for lumbar corset, lower body dressing requires cues for using a tutoring clinician. She showered seated with setup and needed assistance to dry her lower legs and feet. * Continue PT and OT to optimize mobility and activities of daily living. Hypertension has been well controlled on lisinopril and metoprolol. * Blood pressure moderately elevated evening of 09/08/2018 and on 09/09/2018. * Continue to monitor. Consider addition of amlodipine. Iron deficiency anemia. Continue iron sulfate. Unclear if she was taking it prior to her admission. Postsurgical care. Continue spinal precautions. Left message with Dr. Guillen' s office 09/08/2018 inquiring as to whether she can remove lumbar corset to shower. Chronic renal insufficiency status post right nephrectomy for urothelial carcinoma. Continue blood pressure control. Avoid nephrotoxins. * Stable on BMP 09/08/2018. Pain management. Adequate control with acetaminophen, gabapentin and occasional [place]. Insomnia in the hospital. Pruritus due to tape on bandage over incision interfered with sleep last night. She did not use zolpidem. * Type of tape has been changed and she reports resolution of pruritus. Observe for improved sleep tonight, 09/08/2018. Prophylaxis. She has ambulated 200 feet. She does not have hemiplegia, though she has weakness of the left leg. She will be observed regarding mobility. She will not have pharmacologic prophylaxis. Discontinue SCDs starting 2017 as they interfere with sleep. DISPOSITION: Attended staffing, 15 min. Discussed with case management, dietitian, nursing, PT, OT. Plans to return to her home in [place]; also wants to continue to spend [place] in [place]. She probably should not make the drive herself. Per case supervisor there is a plan for her to drive to [place] with friends who will then fly back. Tentative discharge date set for 09/14/2018. FOLLOW-UP. She will see Dr. Guillen, orthopedic spine surgeon after her discharge from inpatient rehabilitation. Her primary care provider is Dr. Raya Chacko. She also needs to have a referral to Oncology regarding her history of urothelial carcinoma. 09/09/18 11:49 Subjective: Did not sleep well last night. She thinks the SCDs kept her up. Otherwise without complaints. Objective: Vital Signs Temp Pulse Resp BP Pulse Ox 36.6 C 72 15 152/74 H 97 09/09/18 07:10 09/09/18 08:35 09/09/18 07:10 09/09/18 08:35 09/09/18 07:10 Laboratory Results 09/08/18 06:00 09/08/18 09/09/18 09/10/18 05:59 05:59 05:59 Intake Total 418 1740 480 Output Total 1450 1500 Balance -1032 240 480 - Time Spent With Patient Time Spent With Patient: Greater than 35 min floor time today, including more than 50% of time in coordination of care during staffing meeting, and counseling patient. Physical Exam - Physical Exam General Appearance: WD/WN, alert, no apparent distress Respiratory: No respiratory distress, No accessory muscle use Skin: normal color, warm/dry Neuro/Psych: alert, normal mood/affect, oriented x 3 ICD10 Worksheet Patient Problems: Problems Problem Status Onset Sciatica Acute
[2018-09-09] MEDS: MELATONIN 3 MG TAB PO SCH (22:11)
[2018-09-10] MEDS: HYDROCODONE/APAP 5/325 TAB PO PRN ×2 (05:26→22:58)
[2018-09-10] MEDS: SENNOSIDES/DOCUSATE SODIUM TAB PO SCH ×2 (07:40→22:57)
[2018-09-10] MEDS: METOPROLOL SUCCINATE XR 50 MG TAB PO SCH (07:40)
[2018-09-10] MEDS: FERROUS SULFATE 325 MG TAB PO SCH (07:41)
[2018-09-10] MEDS: GABAPENTIN 300 MG CAP PO SCH ×3 (07:41→22:58)
[2018-09-10] MEDS: LISINOPRIL 40 MG TAB PO SCH (07:41)
--- NOTE | 2018-09-10 08:42 | SOAPPROG ---
SOAP Progress Note Assessment/Plan: Assessment: Debility with left leg weakness status post L3-L5 decompression and laminectomy. * Initial functional independence measure is 82 on 09/09/2018. Contact guard assist for mobility and for climbing and descending 3 stairs. Scored 30/56 on the Nolan balance inventory. Has weakness on the right foot dorsiflexion and left hip flexion. Often forgets to use breaks with her 4 wheeled walker. Upper body dressing requires cues for lumbar corset, lower body dressing requires cues for using a gis engineer. She showered seated with setup and needed assistance to dry her lower legs and feet. * Continue PT and OT to optimize mobility and activities of daily living. Hypertension has been well controlled on lisinopril and metoprolol. Blood pressure this morning 127/64 * Blood pressure moderately elevated evening of 09/08/2018 and on 09/09/2018. * Continue to monitor. Consider addition of amlodipine. Iron deficiency anemia. Continue iron sulfate. Unclear if she was taking it prior to her admission. Postsurgical care. Continue spinal precautions. Left message with Dr. Guillen' s office 09/08/2018 inquiring as to whether she can remove lumbar corset to shower. Chronic renal insufficiency status post right nephrectomy for urothelial carcinoma. Continue blood pressure control. Avoid nephrotoxins. * Stable on BMP 09/08/2018. Hyponatremia-sodium level from 09/08 133. Continue to monitor. Pain management. Adequate control with acetaminophen, gabapentin and occasional [place]. Insomnia in the hospital. Pruritus due to tape on bandage over incision interfered with sleep last night. She did not use zolpidem. * Type of tape has been changed and she reports resolution of pruritus. Observe for improved sleep tonight, 09/08/2018. Prophylaxis. She has ambulated 200 feet. She does not have hemiplegia, though she has weakness of the left leg. She will be observed regarding mobility. She will not have pharmacologic prophylaxis. Discontinue SCDs starting 2017 as they interfere with sleep. 09/10/18 08:40 Subjective: She reports a little bit of left knee pain, pain along the left pre to tibial region with intermittent numbness which she states preceded her surgery. She reports intermittent low back pain at the surgical site. She denies low back spasms. She is pleased with her therapy progress thus far Objective: Vital Signs Temp Pulse Resp BP Pulse Ox 36.8 C 74 18 127/64 H 94 09/10/18 07:44 09/10/18 07:44 09/10/18 07:44 09/10/18 07:44 09/10/18 07:44 Laboratory Results 09/08/18 06:00 09/09/18 09/10/18 09/11/18 05:59 05:59 05:59 Intake Total 1740 780 Output Total 1500 1350 Balance 240 -570 Physical Exam - Physical Exam General Appearance: WD/WN, alert, no apparent distress Respiratory: lungs clear, normal breath sounds Abdomen: non-tender, soft Skin: normal color, warm/dry Extremities: No calf tenderness, No swelling, No Eric's sign Neuro/Psych: motor weakness ( mild left greater than right lower extremity weakness. Ambulating with walker her.) ICD10 Worksheet Patient Problems: Problems Problem Status Onset Sciatica Acute
[2018-09-10] MEDS: MELATONIN 3 MG TAB PO SCH (22:57)
[2018-09-11] MEDS: HYDROCODONE/APAP 5/325 TAB PO PRN ×2 (06:31→21:57)
[2018-09-11] MEDS: GABAPENTIN 300 MG CAP PO SCH ×3 (09:11→21:10)
[2018-09-11] MEDS: SENNOSIDES/DOCUSATE SODIUM TAB PO SCH ×2 (09:11→21:09)
[2018-09-11] MEDS: METOPROLOL SUCCINATE XR 50 MG TAB PO SCH (09:12)
[2018-09-11] MEDS: LISINOPRIL 40 MG TAB PO SCH (09:12)
[2018-09-11] MEDS: FERROUS SULFATE 325 MG TAB PO SCH (09:13)
--- NOTE | 2018-09-11 09:45 | SOAPPROG ---
SOAP Progress Note Assessment/Plan: Assessment: Debility with left leg weakness status post L3-L5 decompression and laminectomy. * Initial functional independence measure is 82 on 09/09/2018. Contact guard assist for mobility and for climbing and descending 3 stairs. Scored 30/56 on the Nolan balance inventory. Has weakness on the right foot dorsiflexion and left hip flexion. Often forgets to use breaks with her 4 wheeled walker. Upper body dressing requires cues for lumbar corset, lower body dressing requires cues for using a maintenance shop welder. She showered seated with setup and needed assistance to dry her lower legs and feet. * Continue PT and OT to optimize mobility and activities of daily living. Hypertension has been well controlled on lisinopril and metoprolol. Blood pressure this morning 127/64 * Blood pressure moderately elevated evening of 09/08/2018 and on 09/09/2018. * Continue to monitor. Consider addition of amlodipine. Iron deficiency anemia. Continue iron sulfate. Unclear if she was taking it prior to her admission. Postsurgical care. Continue spinal precautions. Left message with Dr. Guillen' s office 09/08/2018 inquiring as to whether she can remove lumbar corset to shower. Chronic renal insufficiency status post right nephrectomy for urothelial carcinoma. Continue blood pressure control. Avoid nephrotoxins. * Stable on BMP 09/08/2018. Hyponatremia-sodium level from 09/08 133. Continue to monitor. Pain management. Adequate control with acetaminophen, gabapentin and occasional [place]. Insomnia in the hospital. Pruritus due to tape on bandage over incision interfered with sleep last night. She did not use zolpidem. * Type of tape has been changed and she reports resolution of pruritus. Observe for improved sleep tonight, 09/08/2018. Prophylaxis. She has ambulated 200 feet. She does not have hemiplegia, though she has weakness of the left leg. She will be observed regarding mobility. She will not have pharmacologic prophylaxis. Discontinue SCDs starting 2017 as they interfere with sleep. 09/10/18 08:40 Subjective: No complaints other than patient reporting that she is getting a cold sore on her upper lip. Objective: Vital Signs Temp Pulse Resp BP Pulse Ox 36.7 C 70 18 115/65 98 09/11/18 08:00 09/11/18 09:12 09/11/18 08:00 09/11/18 09:12 09/11/18 08:00 Laboratory Results 09/08/18 06:00 09/10/18 09/11/18 09/12/18 05:59 05:59 05:59 Intake Total 780 730 Output Total 1350 200 Balance -570 530 Physical Exam - Physical Exam General Appearance: WD/WN, alert, no apparent distress EENT: other (Erythema upper lip, right side) Respiratory: lungs clear, normal breath sounds Cardiac/Chest: No edema Skin: other (Surgical incision inspected on 09/10. Surgical glue was used. There is no erythema, drainage or induration.) Neuro/Psych: alert, normal mood/affect, motor weakness (Mild weakness of both lower extremities. 4+/5 right and left tibialis anterior) ICD10 Worksheet Patient Problems: Problems Problem Status Onset Sciatica Acute
--- NOTE | 2018-09-11 09:48 | SOAPPROG ---
SOAP Progress Note Assessment/Plan: Assessment: Debility with left leg weakness status post L3-L5 decompression and laminectomy. * Initial functional independence measure is 82 on 09/09/2018. Contact guard assist for mobility and for climbing and descending 3 stairs. Scored 30/56 on the Nolan balance inventory. Has weakness on the right foot dorsiflexion and left hip flexion. Often forgets to use breaks with her 4 wheeled walker. Upper body dressing requires cues for lumbar corset, lower body dressing requires cues for using a manugrapher. She showered seated with setup and needed assistance to dry her lower legs and feet. * Continue PT and OT to optimize mobility and activities of daily living. Hypertension has been well controlled on lisinopril and metoprolol. Blood pressure on 09/11 115/65 * Blood pressure moderately elevated evening of 09/08/2018 and on 09/09/2018. * Continue to monitor. Consider addition of amlodipine. Iron deficiency anemia. Continue iron sulfate. Unclear if she was taking it prior to her admission. Postsurgical care. Continue spinal precautions. Left message with Dr. Guillen' s office 09/08/2018 inquiring as to whether she can remove lumbar corset to shower. Chronic renal insufficiency status post right nephrectomy for urothelial carcinoma. Continue blood pressure control. Avoid nephrotoxins. * Stable on BMP 09/08/2018. Hyponatremia-sodium level from 09/08 133. Continue to monitor. Pain management. Adequate control with acetaminophen, gabapentin and occasional [place]. DENIES LOW BACK SPASMS. REPORTS HER PAIN IS WELL CONTROLLED. COLD SORE-UPPER LIP. BEGIN VALTREX 2000 MG Q.12 HOURS X1 DAY Insomnia in the hospital. Pruritus due to tape on bandage over incision interfered with sleep last night. She did not use zolpidem. * Type of tape has been changed and she reports resolution of pruritus. Observe for improved sleep tonight, 09/08/2018. Prophylaxis. She has ambulated 200 feet. She does not have hemiplegia, though she has weakness of the left leg. She will be observed regarding mobility. She will not have pharmacologic prophylaxis. Discontinue SCDs starting 2017 as they interfere with sleep. 09/10/18 08:40 09/11/18 09:47 09/11/18 09:47 Subjective: No complaints other than that she is getting a cold sore upper lip on the right side Objective: Vital Signs Temp Pulse Resp BP Pulse Ox 36.7 C 70 18 115/65 98 09/11/18 08:00 09/11/18 09:12 09/11/18 08:00 09/11/18 09:12 09/11/18 08:00 Laboratory Results 09/08/18 06:00 09/10/18 09/11/18 09/12/18 05:59 05:59 05:59 Intake Total 780 730 360 Output Total 1350 200 Balance -570 530 360 Physical Exam - Physical Exam General Appearance: WD/WN, alert, no apparent distress EENT: other (Erythema noted upper lip right side) Respiratory: lungs clear, normal breath sounds Abdomen: normal bowel sounds, non-tender Skin: other (Surgical incision inspected on 09/10. Surgical glue was used. No erythema, induration or drainage.) Extremities: No swelling, No Eric's sign Neuro/Psych: motor weakness (Mild weakness of both lower extremities but strength is functional, 4+/5 right and left tibialis anterior) ICD10 Worksheet Patient Problems: Problems Problem Status Onset Sciatica Acute
[2018-09-11] MEDS: valACYclovir 500 MG TAB PO SCH ×2 (10:31→21:09)
[2018-09-11] MEDS: MELATONIN 3 MG TAB PO SCH (21:10)
[2018-09-12] MEDS: FERROUS SULFATE 325 MG TAB PO SCH (08:52)
[2018-09-12] MEDS: LISINOPRIL 40 MG TAB PO SCH (08:52)
[2018-09-12] MEDS: GABAPENTIN 300 MG CAP PO SCH ×3 (08:52→21:16)
[2018-09-12] MEDS: METOPROLOL SUCCINATE XR 50 MG TAB PO SCH (08:52)
[2018-09-12] MEDS: SENNOSIDES/DOCUSATE SODIUM TAB PO SCH ×2 (08:54→21:09)
--- NOTE | 2018-09-12 11:13 | SOAPPROG ---
SOAP Progress Note Assessment/Plan: Assessment: Debility with left leg weakness status post L3-L5 decompression and laminectomy. * Initial functional independence measure is 82 on 09/09/2018. Contact guard assist for mobility and for climbing and descending 3 stairs. Scored 30/56 on the Nolan balance inventory. Has weakness on the right foot dorsiflexion and left hip flexion. Often forgets to use brakes with her 4 wheeled walker. Upper body dressing requires cues for lumbar corset, lower body dressing requires cues for using a senior litigation paralegal. She showered seated with setup and needed assistance to dry her lower legs and feet. * Has advanced to independent in her room with a 4 wheeled walker. * Continue PT and OT to optimize mobility and activities of daily living. Hypertension has been well controlled on lisinopril and metoprolol. * Blood pressure moderately elevated evening of 09/08/2018 and on 09/09/2018. * Subsequently normotensive or low threshold to intensify her treatment. Ulcer/cellulitis, left medial thigh. Possibly due to irritation from tape as her skin was sensitive to taper and incision initially during her rehabilitation stay. Will treat with cephalexin starting 09/12/2018 and observe for improvement. If there is a good response she may be able to discontinue antibiotics prior to her discharge. Iron deficiency anemia. Continue iron sulfate. Unclear if she was taking it prior to her admission. Postsurgical care. Continue spinal precautions. May remove lumbar corset to shower. Chronic renal insufficiency status post right nephrectomy for urothelial carcinoma. Continue blood pressure control. Avoid nephrotoxins. * Stable on BMP 09/08/2018. Pain management. Adequate control with acetaminophen, gabapentin and occasional [place]. Insomnia in the hospital. Pruritus due to tape on bandage over incision interfered with sleep last night. She did not use zolpidem. * Type of tape has been changed and she reports resolution of pruritus. Observe for improved sleep tonight, 09/08/2018. Prophylaxis. She has ambulated 200 feet. She does not have hemiplegia, though she has weakness of the left leg. She will be observed regarding mobility. She will not have pharmacologic prophylaxis. Discontinue SCDs starting 2017 as they interfere with sleep. DISPOSITION: Plans to return to her home in [place]; also wants to continue to spend [place] in [place]. She probably should not make the drive herself. Per telehealth case manager there is a plan for her to drive to [place] with friends who will then fly back. Tentative discharge date set for 09/14/2018. FOLLOW-UP. She will see Dr. Guillen, orthopedic spine surgeon after her discharge from inpatient rehabilitation. Her primary care provider is Dr. Raya Chacko. She also needs to have a referral to Oncology regarding her history of urothelial carcinoma. 09/12/18 11:08 Subjective: Reports irritated skin on her left medial thigh. She thinks that there was a blister that happened somehow related to surgery. It was 1st noted by nursing on 09/10/2018. She thinks it may be a blister that broke open. Otherwise without complaints. Not in pain, no cough or dyspnea, no fevers or chills, sleeping well. Objective: Vital Signs Temp Pulse Resp BP Pulse Ox 36.6 C 73 16 133/71 H 94 09/12/18 07:38 09/12/18 07:38 09/12/18 07:38 09/12/18 07:38 09/12/18 07:38 Laboratory Results 09/08/18 06:00 09/11/18 09/12/18 09/13/18 05:59 05:59 05:59 Intake Total 730 1810 500 Output Total 200 800 Balance 530 1010 500 Physical Exam - Physical Exam General Appearance: WD/WN, alert, no apparent distress Respiratory: No respiratory distress, No accessory muscle use Skin: normal color, warm/dry, other (2 cm ulceration left medial thigh consistent with de removed blister. Surrounding erythema especially anterior distal and tenderness. No purulence.) Neuro/Psych: no motor/sensory deficits, alert, normal mood/affect, oriented x 3 ICD10 Worksheet Patient Problems: Problems Problem Status Onset Sciatica Acute
[2018-09-12] MEDS: CEPHALEXIN 500 MG CAP PO SCH ×2 (12:59→17:50)
[2018-09-12] MEDS ORDERED: ONDANSETRON DISINTEGRATING 4 MG TAB PO PRN (20:41)
[2018-09-12] MEDS: MELATONIN 3 MG TAB PO SCH (21:16)
[2018-09-12] MEDS: HYDROCODONE/APAP 5/325 TAB PO PRN (22:17)
[2018-09-13] MEDS: SENNOSIDES/DOCUSATE SODIUM TAB PO SCH ×2 (08:35→21:07)
[2018-09-13] MEDS: METOPROLOL SUCCINATE XR 50 MG TAB PO SCH (08:36)
[2018-09-13] MEDS: FERROUS SULFATE 325 MG TAB PO SCH (08:36)
[2018-09-13] MEDS: GABAPENTIN 300 MG CAP PO SCH ×3 (08:36→21:06)
[2018-09-13] MEDS: LISINOPRIL 40 MG TAB PO SCH (08:36)
--- NOTE | 2018-09-13 11:48 | SOAPPROG ---
SOAP Progress Note Assessment/Plan: Assessment: Debility with left leg weakness status post L3-L5 decompression and laminectomy. * Initial functional independence measure is 82 on 09/09/2018. Contact guard assist for mobility and for climbing and descending 3 stairs. Scored 30/56 on the Nolan balance inventory. Has weakness on the right foot dorsiflexion and left hip flexion. Often forgets to use brakes with her 4 wheeled walker. Upper body dressing requires cues for lumbar corset, lower body dressing requires cues for using a data entry operator. She showered seated with setup and needed assistance to dry her lower legs and feet. * Has advanced to independent in her room with a 4 wheeled walker. * Continue PT and OT to optimize mobility and activities of daily living. Hypertension has been well controlled on lisinopril and metoprolol. * Blood pressure moderately elevated evening of 09/08/2018 and on 09/09/2018. * Subsequently mostly normotensive but was elevated history. Ulcer/cellulitis, left medial thigh. Possibly due to irritation from tape as her skin was sensitive to tape at lumbar incision initially during her rehabilitation stay. * Nausea vomiting and diarrhea after ingestion of cephalexin yesterday afternoon , 09/12/2018. Changed to amoxicillin which is gluten free. Tolerating well. Symptoms were not consistent with her previous experience of gluten ingestion. * Responding to antibiotics. Nausea vomiting and diarrhea. Likely viral gastroenteritis. Symptoms are resolving on 08/14/2018. Iron deficiency anemia. Continue iron sulfate. Unclear if she was taking it prior to her admission. Postsurgical care. Continue spinal precautions. May remove lumbar corset to shower. Chronic renal insufficiency status post right nephrectomy for urothelial carcinoma. Continue blood pressure control. Avoid nephrotoxins. * Stable on BMP 09/08/2018. Pain management. Adequate control with acetaminophen, gabapentin and occasional [place]. Insomnia in the hospital. Pruritus due to tape on bandage over incision interfered with sleep last night. She did not use zolpidem. * Type of tape has been changed and she reports resolution of pruritus. Observe for improved sleep tonight, 09/08/2018. Prophylaxis. She has ambulated 200 feet. She does not have hemiplegia, though she has weakness of the left leg. She will be observed regarding mobility. She will not have pharmacologic prophylaxis. Discontinue SCDs starting 2017 as they interfere with sleep. DISPOSITION: Plans to return to her home in [place]; also wants to continue to spend [place] in [place]. She probably should not make the drive herself. Per casework specialist there is a plan for her to drive to [place] with friends who will then fly back. Discharge has been postponed due to gastroenteritis and cellulitis. Now scheduled for discharge 09/16/2018.. FOLLOW-UP. She will see Dr. Guillen, orthopedic spine surgeon after her discharge from inpatient rehabilitation. Her primary care provider is Dr. Raya Chacko. She also needs to have a referral to Oncology regarding her history of urothelial carcinoma. 09/13/18 12:11 Subjective: Feels weak today and declined 1 therapy session. Had nausea vomiting and diarrhea yesterday afternoon; continued to have diarrhea though much less, overnight. No fevers or chills. No abdominal pain. Reduced appetite but ate breakfast this morning. Symptoms are not like what happens to her when she ingests gluten; in that situation she gets lower abdominal pain which improved after bowel movement. Objective: Vital Signs Temp Pulse Resp BP Pulse Ox 36.7 C 79 18 123/66 H 95 09/13/18 07:00 09/13/18 07:00 09/13/18 07:00 09/13/18 07:00 09/13/18 07:00 Laboratory Results 09/08/18 06:00 09/12/18 09/13/18 09/14/18 05:59 05:59 05:59 Intake Total 1810 1050 750 Output Total 800 Balance 1010 1050 750 Physical Exam - Physical Exam General Appearance: WD/WN, alert, no apparent distress Respiratory: No respiratory distress, No accessory muscle use Skin: normal color, warm/dry, other (Shallow ulcer code within eschar left medial thigh approximately 1.5 x 2 cm with erythema around distal aspect, much reduced from demarcation from yesterday.) Neuro/Psych: alert, normal mood/affect, oriented x 3 ICD10 Worksheet Patient Problems: Problems Problem Status Onset Sciatica Acute
[2018-09-13] MEDS: MELATONIN 3 MG TAB PO SCH (21:06)
[2018-09-13] MEDS: HYDROCODONE/APAP 5/325 TAB PO PRN (22:04)
[2018-09-14] MEDS: GABAPENTIN 300 MG CAP PO SCH ×3 (08:53→22:11)
[2018-09-14] MEDS: FERROUS SULFATE 325 MG TAB PO SCH (08:54)
[2018-09-14] MEDS: LISINOPRIL 40 MG TAB PO SCH (10:35)
[2018-09-14] MEDS: SENNOSIDES/DOCUSATE SODIUM TAB PO SCH ×2 (10:36→22:12)
[2018-09-14] MEDS: METOPROLOL SUCCINATE XR 50 MG TAB PO SCH (10:36)
--- NOTE | 2018-09-14 12:05 | SOAPPROG ---
SOAP Progress Note Assessment/Plan: Assessment: Debility with left leg weakness status post L3-L5 decompression and laminectomy. * Initial functional independence measure is 82 on 09/09/2018. Contact guard assist for mobility and for climbing and descending 3 stairs. Scored 30/56 on the Nolan balance inventory. Has weakness on the right foot dorsiflexion and left hip flexion. Often forgets to use brakes with her 4 wheeled walker. Upper body dressing requires cues for lumbar corset, lower body dressing requires cues for using a home advisor. She showered seated with setup and needed assistance to dry her lower legs and feet. * Has advanced to independent in her room with a 4 wheeled walker. * Continue PT and OT to optimize mobility and activities of daily living. Hypertension has been well controlled on lisinopril and metoprolol. LISINOPRIL AND METOPROLOL ON HOLD 09/14/18 FOR BLOOD PRESSURE 115/63. WILL MONITOR FOR NOW AND RESTART IF NECESSARY. * Blood pressure moderately elevated evening of 09/08/2018 and on 09/09/2018. * Subsequently mostly normotensive but was elevated history. Ulcer/cellulitis, left medial thigh. Possibly due to irritation from tape as her skin was sensitive to tape at lumbar incision initially during her rehabilitation stay. ERYTHEMA HAS REGRESSED FROM PREVIOUS LINE OF DEMARCATION WITH SKIN MARKER. NO DRAINAGE. NO INDURATION IN THE VICINITY OF THE ULCERATION. WOUND CARE TO SEE TODAY AT 3:00 P.M.. * Nausea vomiting and diarrhea after ingestion of cephalexin yesterday afternoon , 09/12/2018. Changed to amoxicillin which is gluten free. Tolerating well. Symptoms were not consistent with her previous experience of gluten ingestion. * Responding to antibiotics. Nausea vomiting and diarrhea. SYMPTOMS CONTINUE TO RESOLVE. WILL CHECK WEIGHT TODAY AND TOMORROW TO MAKE SURE THAT IT IS STABLE Iron deficiency anemia. Continue iron sulfate. Unclear if she was taking it prior to her admission. Postsurgical care. Continue spinal precautions. May remove lumbar corset to shower. SURGICAL INCISION LOOKS GOOD Chronic renal insufficiency status post right nephrectomy for urothelial carcinoma. Continue blood pressure control. Avoid nephrotoxins. * Stable on BMP 09/08/2018. Pain management. Adequate control with acetaminophen, gabapentin and occasional Bryan. Insomnia in the hospital. Pruritus due to tape on bandage over incision interfered with sleep last night. She did not use zolpidem. * Type of tape has been changed and she reports resolution of pruritus. Observe for improved sleep tonight, 09/08/2018. Prophylaxis. She has ambulated 200 feet. She does not have hemiplegia, though she has weakness of the left leg. She will be observed regarding mobility. She will not have pharmacologic prophylaxis. Discontinue SCDs starting 2017 as they interfere with sleep. FAMILY CONFERENCE TODAY WITH SON COSME PUCKETT CONFERENCED IN. PLAN IS FOR PATIENT TO RETURN TO HER HOME WITH ARRANGEMENTS FOR PT, OT AND HOME HEALTH. HER FUNERAL DRIVER, CORNELL, WILL HELP COORDINATE FOLLOWUP AT [facility] STATUS POST NEPHRECTOMY. PATIENT STATES SHE PLANS TO GO TO HER HOME IN [place] AFTER THE OF THE YEAR AND WILL HAVE FAMILY ASSISTANCE REGARDING THIS. DISPOSITION: Plans to return to her home in [place]; also wants to continue to spend [place] in [place]. She probably should not make the drive herself. Per case management coordinator there is a plan for her to drive to [place] with friends who will then fly back. Discharge has been postponed due to gastroenteritis and cellulitis. Now scheduled for discharge 09/16/2018.. FOLLOW-UP. She will see Dr. Guillen, orthopedic spine surgeon after her discharge from inpatient rehabilitation. Her primary care provider is Dr. Raya Chacko. She also needs to have a referral to Oncology regarding her history of urothelial carcinoma. 09/14/18 12:02 09/14/18 12:05 Subjective: She voices concern over the skin ulceration on the left medial thigh. She does state that it looks much better than it did yesterday. She reports no adverse reaction to the Amoxil cycling. Her GI symptoms have resolved. Objective: Vital Signs Temp Pulse Resp BP Pulse Ox 36.4 C 67 16 115/63 98 09/14/18 08:57 09/14/18 08:57 09/14/18 08:57 09/14/18 08:57 09/14/18 08:57 Laboratory Results 09/08/18 06:00 09/13/18 09/14/18 09/15/18 05:59 05:59 05:59 Intake Total 1050 975 350 Output Total 500 700 Balance 1050 475 -350 Physical Exam - Physical Exam General Appearance: WD/WN, alert, no apparent distress Respiratory: lungs clear Cardiac/Chest: No edema Abdomen: non-tender, soft Skin: other (Surgical incision healing well, no erythema, induration or drainage. Left medial thigh skin ulceration has eschar. Skin demarcation with skin marker is noted and erythema has receded from this. No induration. No drainage.) Extremities: No swelling, No Eric's sign Neuro/Psych: motor weakness (Has some weakness of the left hip flexors and right ankle dorsiflexors.) ICD10 Worksheet Patient Problems: Problems Problem Status Onset Sciatica Acute
--- NOTE | 2018-09-14 17:38 | WOCRNPDOC ---
WOCRN Advanced Assessment Note - Skin Integrity Problem, Advanced Assess Left Posterior Medial Thigh Pressure Injury Dressing Type: Open to Air Closure Description: Not Approximated Exudate Amount: Scant Integumentary Issue Intervention: Dressing Applied Anneliese Wound Tissue: Erythema, Non-blanching, Swollen Anneliese Wound Swelling: Mild Wound Bed Constitution: Adhered Slough (100%) Site Measurement - Head-to-Toe Length X Width X Depth (cm): 1.2x1x.01 Pressure Injury Stage: Unstageable, Concession Cashier Related Pressure Injury Pressure Injury Present on Admit: No Skin Integrity Problem Comment: Wound bed cleaned with normal saline and patted dry with gauze. Periwound skin is erythemic, extending approximately 1cm circumferentially from edges of wound. Patient states that she remembers waking up from surgery with a Salcedo catheter, and that she remembers she had been sitting on the tubing. Patient additionally stated that she may have irritated the wound by using the toilet. Patient states that wound was initially a blister -like wound. Patient had surgery on September 04. Patient is AOX4, and able to state the correct day of the week, and was able to count back to the day of surgery. Discussed etiology of wound with patient. Education provided re: need to continue wound care outpatient after discharge from [facility], s/s of worsening wound or infection, dressing type used, and healing process, such as needing to get slough out of wound for proper healing. Patient able to understand and ask appropriate questions, all answered. Wound care will follow.
[2018-09-14] MEDS: HYDROCODONE/APAP 5/325 TAB PO PRN (22:12)
[2018-09-14] MEDS: MELATONIN 3 MG TAB PO SCH (22:12)
[2018-09-15] MEDS: FERROUS SULFATE 325 MG TAB PO SCH (08:58)
[2018-09-15] MEDS: SENNOSIDES/DOCUSATE SODIUM TAB PO SCH ×2 (08:58→22:19)
[2018-09-15] MEDS: METOPROLOL SUCCINATE XR 50 MG TAB PO SCH (08:58)
[2018-09-15] MEDS: GABAPENTIN 300 MG CAP PO SCH ×3 (08:58→22:19)
[2018-09-15] MEDS: LISINOPRIL 40 MG TAB PO SCH (09:00)
--- NOTE | 2018-09-15 12:15 | PDOREHIP ---
Admission [facility] - Admission - 3 Day Assessment Period Admission Date/Day 1: 09/07/18 Day 2: 09/08/18 Day 3: 09/09/18 - Active Diagnoses Comorbidities and Co-existing Conditions at Admission: 61807. None of the Above - Skin Conditions # Stage 1 Pressure Ulcers-Admission: 0 # Stage 2 Pressure Ulcers-Admission: 1 # Stage 3 Pressure Ulcers-Admission: 0 # Stage 4 Pressure Ulcers-Admission: 0 # Unstageable Pressure Ulcers (Non-remove Dress)-Admission: 0 # Unstageable Pressure Ulcers (Slough/Eschar)-Admission: 0 # Unstageable Pressure Ulcers (Deep Tissue Injury)-Admission: 0 Discharge [facility] - Discharge - 3 Day Assessment Period 2 Days Prior to Anticipated Discharge Date: 09/14/18 1 Day Prior to Anticipated Discharge Date: 09/15/18 Anticipated Discharge Date: 09/16/18
--- NOTE | 2018-09-15 13:21 | GDS ---
ADMITTING DIAGNOSIS: Debility with left leg weakness following L3-5 decompression laminectomy. DISCHARGE DIAGNOSIS: Debility with left leg weakness following L3-5 decompression laminectomy. OTHER DISCHARGE DIAGNOSES: 1. Hypertension. 2. Iron-deficiency anemia. 3. Chronic renal insufficiency. 4. Insomnia. COMPLICATIONS: Grade 2 skin ulcer, medial aspect of left thigh, secondary to abrasion from urinary c atheter. CONSULTATIONS: Wound care nurse. HISTORY AND HOSPITAL COURSE: The patient has a history of left leg weakness and falls. Lumbar spine imaging studies showed spinal foraminal lumbar stenosis. She was admitted to [facility] for elective spinal decompression laminectomy. Hospital course was relatively uncomplicated. She was mo nitored for renal insufficiency. She has had a recent nephrectomy in July of this year for urothe lial carcinoma. She was medically stable and was admitted to the inpatient rehab unit for [facility], status post L3-5 decompression and laminectomy, lower extremity weakness, more pr onounced on the left, and gait dysfunction. FIM score was noted to be 82 on 09/09/2018. She require d contact guard assist for mobility and for climbing and descending stairs. Initially scored 30/56 o n Nolan Balance Inventory. She received physical and occupational therapy to optimize mobility and AD Ls. Hypertension was managed on lisinopril and metoprolol. She continued on iron sulfate for iron-d eficiency anemia. BMP was stable as of 09/08/2018. Pain was adequately controlled with acetaminophe n, gabapentin, and occasional use of [place]. On 09/09/2018, she was ambulating 200 feet using the FWW contact guard assist. Her hospital course on the rehab unit was complicated by a grade 2 ulceration on the medial aspect of the left thigh, which became erythematous and somewhat indurated on 09/12, a nd therefore, was started on antibiotic, which she apparently developed an allergic reaction to, and then had a bout of gastroenteritis, possibly related to the antibiotic. This was discontinued, and s he was started on amoxicillin 500 mg q.8 hours. The erythema around the ulcer began to dissipate by the next day. She was seen by the wound care nurse on 09/14. The wound was debrided, and followup w ound care management was recommended. On the day prior to discharge, she had marked improvement in e rythema around the ulceration, no induration and scant drainage. By 09/15/2018, she was ambulating independently in her room with the FWW and 500 feet in the facility with the FWW contact guard assist. DISCHARGE PLAN: She will be discharged to her home with PT, OT, and home health services. This will include wound care management, and these instructions were conveyed by the wound care nurse. She wi ll be discharged with a walker and a straight cane. She will also have followup at the [facility], and these arrangements were pending at the time of this dictation. MEDICATIONS: Amoxicillin 500 mg p.o. q.8 hours with a stop date of 09/19. She was provided with a q uantity to extend through 09/19. Gabapentin 300 mg t.i.d. Hydrocortisone cream b.i.d. p.r.n. irrita tion. Lisinopril 40 mg p.o. daily. Methocarbamol 750 mg p.o. q.i.d. p.r.n. back spasms. Zofran 4 m g p.o. q.6 hours nausea/vomiting. Ambien 5 mg p.o. q.h.s. p.r.n. insomnia. Rx is provided. ISSUES TO BE ADDRESSED AT FOLLOWUP: 1. She will continue wearing lumbar orthoses. She can remove the lumbar corset to shower. 2. Skin care, for left medial thigh ulceration: She will continue to be followed for this per [facility], who will receive instructions from the wound care nurse at our facility. 3. Hypertension. Continue metoprolol 50 mg p.o. daily. Continue lisinopril 40 mg p.o. daily. 4. Insomnia. Continue melatonin 3 mg p.o. q.h.s. p.r.n. 5. Muscle spasms. Continue methocarbamol 750 p.o. q.i.d. as needed. /[id number]/MODL
[2018-09-15] MEDS: MELATONIN 3 MG TAB PO SCH (22:19)
[2018-09-15] MEDS: HYDROCODONE/APAP 5/325 TAB PO PRN (22:19)
[2018-09-16] MEDS: LISINOPRIL 40 MG TAB PO SCH (08:54)
[2018-09-16] MEDS: FERROUS SULFATE 325 MG TAB PO SCH (08:54)
[2018-09-16] MEDS: SENNOSIDES/DOCUSATE SODIUM TAB PO SCH (08:54)
[2018-09-16] MEDS: METOPROLOL SUCCINATE XR 50 MG TAB PO SCH (08:54)
[2018-09-16] MEDS: GABAPENTIN 300 MG CAP PO SCH ×2 (08:55→14:11)
[2018-09-16 08:57] VITALS: BP 130/80
== END 2018-09-16 14:30 | disposition home health service (06) | DRG 950 ==
LOC: BREH 14:57
PROVIDERS: ADMIT Internal Medicine; ATTEND Internal Medicine
PROC: F0636ZZ Communicative/Cognitive Integration Skills Treatment of Neurological System - Whole Body (ICD-10-PCS; principal; 2018-09-07)
PROC: F07M3ZZ Motor Function Treatment of Musculoskeletal System - Whole Body (ICD-10-PCS; principal; 2018-09-07)
DX: Z48.811 Encounter for surgical aftercare following surgery on the nervous system (principal); M62.81 Muscle weakness (generalized); M41.86 Other forms of scoliosis, lumbar region; D50.8 Other iron deficiency anemias; I12.9 Hypertensive chronic kidney disease with stage 1 through stage 4 chronic kidney disease, or unspecified chronic kidney disease; N18.9 Chronic kidney disease, unspecified; Z85.528 Personal history of other malignant neoplasm of kidney; Z90.5 Acquired absence of kidney; Z96.643 Presence of artificial hip joint, bilateral; G47.00 Insomnia, unspecified
CPT/HCPCS: 97110-GO; 97110-GP; 97112-GP; 97116-GP; 97161-GP; 97166-GO; 97530-GO; 97530-GP; 97535-GO; 99366-GO; G0008